=== PATIENT | female | born 1935 | race Caucasian/White ===

== ENCOUNTER → 2018-08-19 | Outpatient (CLI) | payer OTHER ==
[~2018-08-19] MED LIST: ASPI-630 PO; LEVO50TA5 PO; PRAV40TA2 PO
--- NOTE | 2018-08-19 11:55 | KCIC ---
EXAM: Cervical spine MRI without contrast. HISTORY: Left upper extremity pain. Neck stiffness. TECHNIQUE: Multiplanar, multisequence magnetic resonance imaging of the cervical spine was performed without contrast. COMPARISON: 09/16/2013 FINDINGS: There is mild anterolisthesis of C4 on C5 and C7 on T1 and retrolisthesis of C5 on C6. There is degenerative endplate remodeling with disc space narrowing and osteophytosis primarily at C6-C7. There is a prominent superior endplate Schmorl's node at C6. There are few osseous hemangiomas. There is no suspicious osseous lesion. No spinal cord lesion is seen. At C2-C3, there is mild right facet arthropathy. There is no stenosis. At C3-C4, there is a shallow posterior central disc protrusion and annular tear superimposed on a disc bulge and endplate remodeling. There is moderate right greater than left facet arthropathy. There is mild right foraminal stenosis. At C4-C5, there is a left posterior lateral predominant disc bulge and endplate osteophytosis. There is mild right and moderate left facet arthropathy. There is left greater than right uncovertebral arthropathy. There is moderate left foraminal stenosis. There is slight deformation of the ventral aspect of the spinal cord without significant central canal stenosis. At C5-C6, there is a disc bulge and endplate osteophytosis. There is moderate bilateral facet arthropathy. There is bilateral uncovertebral arthropathy. There is mild right and moderate left foraminal stenosis. At C6-C7, there is a left posterior lateral predominant disc bulge and endplate osteophytosis. There is mild left facet arthropathy. There is left greater than right uncovertebral arthropathy. There is moderate left foraminal stenosis. There is slight flattening of the left ventral aspect of the spinal cord without significant central canal stenosis. There are small disc protrusions at the upper thoracic vertebral levels. IMPRESSION: 1. 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 This results in foraminal stenosis at the aforementioned levels. These findings are more conspicuous compared to the prior study. However, the prior study is limited due to motion artifact. 2. Minimal and mild cervical listhesis at the aforementioned levels. Electronically signed by: Dee Henriquez MD (08/19/2018 11:52 AM) [id number]
== END | disposition home or self-care (01) ==
LOC: KCIC MRI 09:45
PROVIDERS: ATTEND Physical Medicine & Rehabilitation
DX: S46.012A Strain of muscle(s) and tendon(s) of the rotator cuff of left shoulder, initial encounter (principal); M47.892 Other spondylosis, cervical region; M47.894 Other spondylosis, thoracic region; M48.02 Spinal stenosis, cervical region; M43.12 Spondylolisthesis, cervical region; M12.88 Other specific arthropathies, not elsewhere classified, other specified site; M50.31 Other cervical disc degeneration, high cervical region; M50.21 Other cervical disc displacement, high cervical region; D18.09 Hemangioma of other sites; X58.XXXA Exposure to other specified factors, initial encounter; Y93.89 Activity, other specified; Y92.89 Other specified places as the place of occurrence of the external cause; Y99.8 Other external cause status
CPT/HCPCS: 72141

== ENCOUNTER → 2019-12-19 | Outpatient (CLI) | payer MEDICARE ==
--- NOTE | 2019-12-19 11:25 | KCIC ---
EXAMINATION: Magnetic resonance imaging (MRI) of the brain and brainstem without contrast 12/19/2019 10:15 AM HISTORY: Dystonia. Left arm, wrist and hand cramping for about 3 years. TECHNIQUE: Multiplanar multi-weighted MRI of the brain and brainstem was performed without intravenous contrast using the general brain protocol. COMPARISON: None available. FINDINGS: The scalp and calvarium are normal. The superior sagittal sinus demonstrates normal venous flow. The corpus callosum is normal in shape and signal intensity. Mild cerebellar volume loss without suspicious mass. The pituitary and sella are normal. The brainstem and craniocervical junction are unremarkable. Diffusion weighted images reveal no hyperintensities to suggest acute cerebral infarction. The susceptibility weighted sequences reveal no evidence of acute or chronic hemorrhage. Ventricles, sulci and basal cisterns are prominent compatible with mild general cerebral volume loss. No hydrocephalus. Few T2/FLAIR signal hyperintense foci in the periventricular and subcortical white matter are within the range of normal aging. The paranasal sinuses are normal. The visualized portions of the mastoids are unremarkable. The orbits appear normal. Normal flow voids are demonstrated in the carotid arteries and basilar artery. IMPRESSION: 1. No evidence for acute or subacute ischemia. 2. Mild generalized cerebral and cerebellar volume loss. Electronically signed by: Mena Beauchamp MD (12/19/2019 11:22 AM) [facility]
== END ==
LOC: KCIC MRI 09:57
PROVIDERS: ATTEND Psychiatry & Neurology Neurology with Special Qualifications in Child Neurology
DX: G24.9 Dystonia, unspecified (principal)
CPT/HCPCS: 70551

== ENCOUNTER → 2021-07-25 | Outpatient (CLI) | payer MEDICARE ==
--- NOTE | 2021-07-26 10:18 | CARD ---
MR#: [id number] Date of Study: 07/25/2021 Ordering Physician: LAURIE AGUILAR, Referring Physician: LAURIE AGUILAR, Tech: Barbara Stacy, [facility] APPROVED REPORT EXAM: Two-dimensional and M-mode echocardiogram with Doppler and color Doppler. Other Information Quality : GoodHR: 70bpm Rhythm : NSR INDICATION Palpitations 2D DIMENSIONS RVDd3.3 (2.9-3.5cm)Left Atrium(2D)3.3 (1.6-4.0cm) IVSd0.9 (0.7-1.1cm)Aortic Root(2D)3.4 (2.0-3.7cm) LVDd3.7 (3.9-5.9cm)LVOT Diameter1.8 (1.8-2.4cm) PWd0.9 (0.7-1.1cm)LVDs2.3 (2.5-4.0cm) FS (%) 37.3 %SV39.9 ml Aortic Valve AoV Peak Harman.129.2cm/sAoV VTI30.0cm AO Peak GR.6.7mmHgLVOT Peak Harman.102.3cm/s AO Mean GR.4mmHgAVA (VMAX)1.97cm2 AI P 1/2 Arhm024yn Mitral Valve MV E Iygnkoan46.6cm/sMV DECEL [id number] MV A Jkbakttb540.4cm/sE/A Ratio0.9 Tricuspid Valve TR P. Gqfgresu282pu/sTR Peak Gr.31mmHg LEFT VENTRICLE The left ventricle is normal size. There is normal left ventricular wall thickness. The left ventricu lar systolic function is normal and the ejection fraction is within normal range. LV ejection fractio n of 55 to 60%. There is normal LV segmental wall motion. Transmitral Doppler flow pattern is Grade I -abnormal relaxation pattern. RIGHT VENTRICLE The right ventricle is normal size. There is normal right ventricular wall thickness. The right ventr icular systolic function is normal. ATRIA The left atrium size is normal. The right atrium size is normal. The interatrial septum is intact wit h no evidence for an atrial septal defect or patent foramen ovale as noted on 2-D or Doppler imaging. AORTIC VALVE The aortic valve is normal in structure and function. Doppler and Color Flow revealed trace aortic re gurgitation. There is no significant aortic valvular stenosis. MITRAL VALVE The mitral valve is normal in structure and function. There is no evidence of mitral valve prolapse. There is no mitral valve stenosis. Doppler and Color-flow revealed mild mitral regurgitation. TRICUSPID VALVE The tricuspid valve is normal in structure and function. Doppler and Color Flow revealed mild tricusp id regurgitation. Estimated PAP 35 mmHg. There is no tricuspid valve stenosis. PULMONIC VALVE The pulmonary valve is normal in structure and function. Doppler and Color Flow revealed mild pulmoni c valvular regurgitation. GREAT VESSELS The aortic root is normal in size. The ascending aorta is normal in size. The IVC is normal in size a nd collapses >50% with inspiration. PERICARDIAL EFFUSION There is no evidence of significant pericardial effusion. Critical Notification Critical Value: No <Conclusion> The left ventricle is normal size. The left ventricular systolic function is normal and the ejection fraction is within normal range. LV ejection fraction of 55 to 60%. Doppler and Color Flow revealed trace aortic regurgitation. There is no significant aortic valvular stenosis. Doppler and Color-flow revealed mild mitral regurgitation. Doppler and Color Flow revealed mild tricuspid regurgitation. Estimated PAP 35 mmHg. Signed by : Joshua Rodriguez MD Electronically Approved : 07/26/2021 10:18:13
== END ==
LOC: ECHO 10:53
PROVIDERS: ATTEND Physician Assistant Medical
DX: I08.8 Other rheumatic multiple valve diseases (principal); R00.2 Palpitations
CPT/HCPCS: 93306; C8929

== ENCOUNTER → 2021-08-19 | Outpatient (CLI) | payer MEDICARE ==
--- NOTE | 2021-08-20 17:25 | RAD ---
MR#: [id number] Date of Study: 08/19/2021 Ordering Physician: JENNIFER VEGA, Referring Physician: TRINI BROWN Tech: RT Kristin (R) (N) APPROVED REPORT Test Type: Exercise Stress Nurse/Tech: Gabe Rodriguez RN Test Indications: Dyspnea on exertion Cardiac History: See EMR. Medications: See EMR. Medical History: TIA, Asthma, See EMR. Resting ECG: SR Resting Heart Rate: 60 bpm Resting Blood Pressure: 172/56mmHg Pretest Chest Pain: No chest pain Nurse/Tech Notes Lungs CTA, Heart tones regular. Consent: The procedure was explained to the patient in lay terms. Informed consent was witnessed. Gaetano eout was entered into [employer]. History and Stress Test performed by DARIUSZ Rodas, ARRT (R) (N) Stress Symptoms Dyspnea. ST depression in leads II, III, AVF, V3-V6. And ST elevation in lead AVR. All EKG changes ba ck to baseline by the end of rest. Pt denied any chest pain or pressure. POST EXERCISE Reason for Termination: Reached target heart rate Target HR: Yes Max HR: 117 bpm 102% of Maximum Predicted HR: 115 bpm Exercise duration: 3:00 min:sec, 1 Stage Exercise capacity: 4.6METs Max Blood Pressure: 199/73mmHg Blood Pressure response to exercise: Normal blood pressure response during stress. Heart Rate response to exercise: WNL Chest Pain: No. Arrhythmia: Yes. Frequent PACs. ST Change: Yes. See Stress Symptoms. INTERPRETATION Stress EKG Conclusion: Mildly abnormal EKG response with [address] segment depression Imaging Protocol IMAGE PROTOCOL: Rest Tc-99m/stress Tc-99m 1 day Rest: Stress: Viability: Radiopharm.Tc99m [id number] Sestamibi [id number] 32mCi Duration 15min. 10min. Img Date 08/19/2021 08/19/2021 Inj-Img Nmgl45ikc. 60min. Rest Admin Site:IV - Left HandAdministrator:RT Sharlene FosterR)(N) Stress Admin Site: IV - Left HandAdministrator: Delmis Rodriguez, NMTCB, ARRT (R)(N) STRESS DATA End Diast. Vol.35.0mlAv. Heart Rate79.0bpm End Syst. Vol.2.0mlCO Index BSA2.6L/min Myocardial Mass78.0gEject. Ooeprwak44.0% Stress Rates Pk. Fill Rate4.71EDV/secLVtime Pk. Fill 225.43msec Pk. Empty Rate5.31ESV/secLVtime Pk. Cxltk219.92msec /3 Pk. Fill0.59EDV/sec Stress Scores Regional WT0.00Summed WT0.00 Regional WM0.00Summed WM0.00 The rest and stress images show normal perfusion, normal contraction and thickening. LV Perf. Quant 17 Seg. SSS0.00 17 Seg. SRS0.00 17 Seg. SDS0.00 Stress Defect Extent (% LAD)0.00Rest Defect Extent (% LAD)0.00Rev. Defect Extent (% LAD)0.00 Stress Defect Extent (% LCX) 0.00Rest Defect Extent (% LCX)0.00Rev. Defect Extent (% LCX)0.00 Stress Defect Extent (% RCA)0.00Rest Defect Extent (% RCA)0.00Rev. Defect Extent (% RCA)0.00 Stress Defect Extent (% ALICIA)0.00Rest Defect Extent (% ALICIA)0.00Rev. Defect Extent (% ALICIA)0.00 Other Information Quality:Average Risk Assessment: Low-Moderate Risk Conclusion 1. Mildly abnormal EKG response with 1 to [address] segment depression 2. Normal perfusion at stress and rest. 3. Normal EF greater than 70%. 4. Low risk study overall. Signed by : Red Coughlin, Electronically Approved : 08/20/2021 17:25:14
== END ==
LOC: NM 09:19
PROVIDERS: ATTEND Internal Medicine Cardiovascular Disease
DX: R94.31 Abnormal electrocardiogram [ECG] [EKG] (principal); R06.09 Other forms of dyspnea
CPT/HCPCS: 78452; 93017; A9500